=== PATIENT | female | born 1990 | race Hispanic/Latino ===

== ENCOUNTER → 2020-07-01 | Emergency (ER) | payer BC ==
[~2020-07-01] VITALS: Ht 160 cm; Wt 73.5 kg
[~2020-07-01] MED LIST: ACETAMINOPHEN 325 MG TAB ONE; KETOROLAC TROMETHAMINE 60 MG/2 ML VIAL IM ONE
[2020-07-01 07:43] LABS: BILIRUBIN,URINE NEGATIVE (NEGATIVE); COLOR,URINE YELLOW (YELLOW); KETONES,URINE NEGATIVE (NEGATIVE); NITRITE,URINE NEGATIVE (NEGATIVE); PROTEIN,URINE DIPSTICK 2+ (NEGATIVE); URINE UROBILINOGEN 0.2 mg/dL (0.2 - 1)
[2020-07-01 07:44] LABS: CLARITY,URINE HAZY (CLEAR); LEUKOCYTE ESTERASE ,URINE SMALL (NEGATIVE)
[2020-07-01 07:54] LABS: BACTERIA,URINE FEW /HPF; EPITHELIAL CELLS,URINE FEW /LPF; MUCUS,URINE FEW (RARE); RBC,URINE 0-5 /HPF (0-5); WBC,URINE (MAN) 21-50 /HPF (0-5)
[2020-07-01 07:56] LABS: PREGNANCY TEST, URINE NEGATIVE (NEGATIVE)
== END | disposition home or self-care (01) ==
LOC: ER 06:43
DX: N39.0 Urinary tract infection, site not specified (principal); R30.0 Dysuria; M54.5 Low back pain
CPT/HCPCS: 81001; 81025; 87086; 87186; 99283; J1885; 99282